=== PATIENT | female | born 1980 | race Caucasian/White ===

== ENCOUNTER 2018-10-17 19:34 | Emergency (ER) | payer MEDICAID, OTHER ==
[~2018-10-17] VITALS: Ht 149.9 cm; Wt 63.5 kg
[2018-10-17 19:34] VITALS: BP 147/100
--- NOTE | 2018-10-17 19:34 | NUR ---
PATIENT AMBULATED TO ER BED 11.
--- NOTE | 2018-10-17 20:00 | NUR ---
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 LUNG SOUNDS CLEAR TO ASCULTATION. NO OBVIOUS DISTRESS NOTED. PT PLACED INTO BED, PENDING MD BAKER.
[2018-10-17] MEDS ORDERED: ALBUTEROL SULFATE/IPRATROPIU 3 ML SOL IH ONE (21:05)
--- NOTE | 2018-10-17 21:30 | NUR ---
RT AT BEDSIDE.
[2018-10-17 21:45] VITALS: BP 138/88
== END 2018-10-17 21:45 | disposition home or self-care (01) ==
LOC: MED 19:34
DX: R05 Cough (principal); R06.02 Shortness of breath; R42 Dizziness and giddiness; J02.9 Acute pharyngitis, unspecified; I10 Essential (primary) hypertension; F17.210 Nicotine dependence, cigarettes, uncomplicated; Z90.49 Acquired absence of other specified parts of digestive tract
CPT/HCPCS: 71046; 94640; 99283; J7620

== ENCOUNTER 2023-06-29 11:22 | Emergency (ER) | payer MEDICAID, OTHER ==
[~2023-06-29] VITALS: Ht 165.1 cm; Wt 77.1 kg
[2023-06-29 11:49] VITALS: BP 162/106; PULSE 97; RESP 20; TEMP 97.9; O2SAT 98
[2023-06-29] MEDS ORDERED: ATRO1TAB PO (12:43)
[2023-06-29 13:25] VITALS: BP 162/106; PULSE 97; RESP 20; TEMP 97.9; O2SAT 98
== END 2023-06-29 13:25 | disposition home or self-care (01) ==
LOC: MED 11:22
DX: R19.7 Diarrhea, unspecified (principal); I10 Essential (primary) hypertension; F17.210 Nicotine dependence, cigarettes, uncomplicated; Z90.49 Acquired absence of other specified parts of digestive tract; Z79.899 Other long term (current) drug therapy
CPT/HCPCS: 99283